=== PATIENT | female | born 1975 | race Caucasian/White ===

== ENCOUNTER → 2017-06-30 | Outpatient (CLI) | payer BC ==
[~2017-06-30] MED LIST: PRENATAL VITAMI1 TA5 PO
== END ==
LOC: MC.RAD 13:00
DX: Z12.31 Encounter for screening mammogram for malignant neoplasm of breast (principal)

== ENCOUNTER → 2019-09-20 | Outpatient (CLI) | payer BC | LOC: MC.RAD 08:12 | DX: Z12.31 Encounter for screening mammogram for malignant neoplasm of breast (principal) ==

== ENCOUNTER → 2021-01-14 | Outpatient (CLI) | payer BC | LOC: MC.RAD 07:44 | DX: Z12.31 Encounter for screening mammogram for malignant neoplasm of breast (principal) ==